=== PATIENT | female | born 1970 | race Caucasian/White ===

== ENCOUNTER 2022-04-27 18:00 | Emergency (ER) | payer OTHER, SELFPAY ==
[2022-04-27 18:01] VITALS: BMI 26.5
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
--- NOTE | 2022-04-27 18:01 | PC.NURSE ---
Procedure done emergent during trauma code
--- NOTE | 2022-04-27 18:20 | PC.NURSE ---
doctor of naturopathic medicine contacted at this time
--- NOTE | 2022-04-27 18:38 | PC.NURSE ---
alisha financial services agent speaking with pt and son at this time.
--- NOTE | 2022-04-27 18:44 | PC.NURSE ---
Addendum entered by Sona Castillo RN 04/28/22 11:04: Spoke with Claire Ames with [facility] Original Note: calling [facility] at this time
--- NOTE | 2022-04-27 18:56 | PC.NURSE ---
Patient arrived via EMS at 1801 with CPR in progress. wounds noted to left hand/pinky area. left leg externally rotated from mid thigh down. open wound with exposed bone noted to left knee area. left chest wall noted to be compressed/crushed. Abdomen noted to be swelling with compressions/squeezing of BMV. 180 arrived CPR in progress 180 CPR continued after moved to stretcher 1805 Pulse check, no pulse, compressions resumed. 180 Epi administered 180 Chest tubes placed bilaterally by ER 180 I/O inserted to r tibial plateau 180 Pulse Check, no pulse, compressions resumed 180 Epi administered 180 1 amp Bicarb administered 180 No output noted via chest tubes. H's T's reviewed 1810 patient pronounced at this time. 1820 [employer]ing Technician contacted 184 Ruddy contacted.
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
[2022-04-27 20:17] VITALS: BP 0/0; PULSE 0; RESP 0; TEMP -17.7; TEMP 0; O2SAT 0
== END 2022-04-27 20:33 | disposition expired ==
PROVIDERS: Emergency Provider Student in an Organized Health Care Education/Training Program
DX: T79.4XXA Traumatic shock, initial encounter (principal); S27.2XXA Traumatic hemopneumothorax, initial encounter; J96.00 Acute respiratory failure, unspecified whether with hypoxia or hypercapnia; S72.92XB Unspecified fracture of left femur, initial encounter for open fracture type I or II; S82.202B Unspecified fracture of shaft of left tibia, initial encounter for open fracture type I or II; S82.402B Unspecified fracture of shaft of left fibula, initial encounter for open fracture type I or II; S61.412A Laceration without foreign body of left hand, initial encounter; V95.9XXA Unspecified aircraft accident injuring occupant, initial encounter
CPT/HCPCS: 31605; 32551; 92950; 99285